=== PATIENT | female | born 1975 | race Caucasian/White ===

== ENCOUNTER 2017-02-04 10:36 | Day surgery (SDC) | payer MEDICAID ==
[~2017-02-04] VITALS: Ht 160 cm; Wt 71.5 kg
[~2017-02-04 10:36] MED LIST: DOCU-30 PO; ENOX40SY4 SQ; IBUP-1222 PO; OXYC-302 PO; PREN1TAB60 PO
[2017-02-04] MEDS ORDERED: OXYTOCIN 10 UNITS/ML, 1ML ONE (11:02)
[2017-02-04] MEDS ORDERED: SILVER NITRATE STICK TP ONE (11:02)
[2017-02-04] MEDS ORDERED: MISOPROSTOL 200 MCG TABLET ONE (11:02)
[2017-02-04] MEDS ORDERED: METHYLERGONOVINE 0.2 MG/ML IM ONE (11:02)
[2017-02-04] MEDS ORDERED: BUPIVACAINE/PF-EPI 0.25% 1:200K ONE (11:02)
[2017-02-04] MEDS ORDERED: LACTATED RINGERS 1,000 ML IV SCH (11:24)
[2017-02-04 11:33] VITALS: BP 112/73
[2017-02-04 12:12] LABS: ASPARTATE AMINO TRANSFERASE 5 U/L (15-37); BLOOD UREA NITROGEN 11 mg/dL (7-18)
[2017-02-04] MEDS ORDERED: MIDAZOLAM 1 MG/ML, 2ML ONE (15:00)
[2017-02-04] MEDS ORDERED: FENTANYL PF 100 MCG/2ML ONE ×2 (15:00→16:28)
[2017-02-04] MEDS ORDERED: CEFAZOLIN 1,000 MG ONE (15:17)
[2017-02-04] MEDS ORDERED: KETOROLAC 30 MG/1 ML ONE (15:17)
[2017-02-04] MEDS ORDERED: DEXAMETHASONE 4 MG/ML, 1ML ONE (15:17)
[2017-02-04] MEDS ORDERED: PROPOFOL 10 MG/ML, 20ML ONE (15:17)
[2017-02-04] MEDS ORDERED: METOPROLOL 1 MG/ML, 5ML IV PRN (16:00)
[2017-02-04] MEDS ORDERED: hydrALAzine 20 MG/ML, 1ML IV PRN (16:00)
[2017-02-04] MEDS ORDERED: ACETAMINOPHEN 325 MG TABLET PO PRN (16:00)
[2017-02-04] MEDS ORDERED: ALBUTEROL/IPRATROPIUM 2.5MG/0.5MG, 3 ML NPPB PRN (16:00)
[2017-02-04] MEDS ORDERED: MEPERIDINE/PF 25MG/0.5ML IVPush PRN (16:00)
[2017-02-04] MEDS ORDERED: HYDROmorphone 1 MG/ML, 1ML IV PRN (16:00)
[2017-02-04] MEDS ORDERED: OXYcodone 5 MG/5 ML ORAL.SOL UDC PO PRN (16:00)
[2017-02-04] MEDS ORDERED: OXYcodone 5 MG/5 ML ORAL.SOL UDC ONE (16:29)
[2017-02-04] MEDS: FENTANYL PF 100 MCG/2ML IV PRN ×2 (16:35→17:02)
== END 2017-02-04 18:55 | disposition home or self-care (01) ==
LOC: OUT 10:36
PROVIDERS: ATTEND Obstetrics & Gynecology
DX: O02.1 Missed abortion (principal); N88.8 Other specified noninflammatory disorders of cervix uteri; Z3A.13 13 weeks gestation of pregnancy; F32.9 Major depressive disorder, single episode, unspecified; Z82.49 Family history of ischemic heart disease and other diseases of the circulatory system; Z79.899 Other long term (current) drug therapy
CPT/HCPCS: 36415; 57500; 59821; 80053; 81003; 81229; 86850; 86900; 88305; J0690; J1100; J1885; J2250; J2704; J3010; J7120; J2210; J2590

== ENCOUNTER → 2017-03-10 | Outpatient (CLI) | payer MEDICAID | END | disposition home or self-care (01) | LOC: STAR 12:31 | PROVIDERS: ATTEND Obstetrics & Gynecology | DX: Z30.2 Encounter for sterilization (principal) | CPT/HCPCS: 36415; 84703; 85025 ==